=== PATIENT | female | born 1975 | race Caucasian/White ===

== ENCOUNTER 2023-08-08 17:53 | Emergency (ER) | payer OTHER, SELFPAY ==
--- NOTE | 2023-08-08 18:01 | ECG_ITS ---
The [facility] Test Date: 2023-08-08 Pat Name: JAEL JOHNSON Department: Room: - Gender: Female [employer]: : 1975 Requested By: Order Number: [id number] Reading MD: VIRGILIO BENITEZ Measurements Intervals [place] Rate: 94 P: 73 CT: 150 QRS: 82 QRSD: 80 T: 37 QT: 352 QTc: 404 Interpretive Statements 1100 Sinus rhythm 9110 normal ECG No previous ECG available for comparison Electronically Signed On 08-09-2023 7:07:10 EDT by VIRGILIO BENITEZ
[2023-08-08 18:04] VITALS: BP 148/101; PULSE 95; RESP 16; TEMP 36.9; O2SAT 99; BMI 24.7
[2023-08-08 18:15] VITALS: PULSE 88
[2023-08-08 18:19] VITALS: O2SAT 98
[2023-08-08] MEDS: ASPIRIN 81 MG TAB.CHEW 162 MG PO (18:22)
[2023-08-08] MEDS: 0.9 % SODIUM CHLORIDE 1,000 ML 1000 ML IV (18:23)
[2023-08-08 18:37] LABS: Basophils Absolute Auto 0.1 10^3/uL (0.0-0.1); Basophils Percent Auto 0.9 % (0.2-2.0); Eosinophils Absolute Auto 0.1 10^3/uL (0.0-0.7); Eosinophils Percent Auto 1.3 % (0.9-7.0); Hematocrit 38.1 % (36.0-48.0); Hemoglobin 12.8 g/dL (12.0-16.0); Immature Granulocytes Abs Auto 0.02 10^3/uL (0.00-0.03); Immature Granulocytes Pct Auto 0.2 % (0.0-0.5); Lymphocytes Absolute Auto 2.5 10^3/uL (1.2-3.8); Lymphocytes Percent Auto 22.9 % (20.5-60.0); Mean Corpuscular HGB Conc 33.6 g/dL (29.9-35.2); Mean Corpuscular Hemoglobin 30.5 pg (26.7-34.0); Mean Corpuscular Volume 90.7 fL (81.0-99.0); Mean Platelet Volume 9.4 fL (9.5-13.5); Monocytes Absolute Auto 0.9 10^3/uL (0.3-0.8); Monocytes Percent Auto 7.8 % (1.7-12.0); Neutrophils Absolute Auto 7.3 10^3/uL (1.4-6.5); Neutrophils Percent Auto 66.9 % (43.0-75.0); Platelet Count 357 10^3/uL (150-450); Red Cell Distribution Width 12.4 % (11.0-15.0)
--- NOTE | 2023-08-08 18:46 | ED_ITS ---
HPI - Chest Pain General Chief Complaint: Chest Pain Stated Complaint: chest pain Time Seen by Provider: 08/08/23 17:56 Source: patient Mode of arrival: walk-in Limitations: no limitations History of Present Illness HPI narrative: patient is a 47-year-old female who presents to the emergency department for evaluation of chest pain in the anterior chest that began around 4:30 PM and has now resolved. Patient states she was at work. She states that she gets anxious from time to time. She states because she was dizzy and had chest pain, her employer encouraged her to come to the Emergency Room. She still reports feeling mildly dizzy. She denies any recent illness, fevers, chills, cough, congestion. She states she was short of breath with the episode of chest pain but no longer has this. She has not had any peripheral edema. She does not smoke. She denies any history of high cholesterol, hypertension or diabetes. No known coronary artery disease or other heart or lung problems. Risk Factors Coronary artery disease risk factors: none Related Data Home Medications Medication Instructions Recorded Confirmed No Known Home Medications 08/08/23 08/08/23 Allergies Allergy/AdvReac Type Severity Reaction Status Date / Time No Known Drug Allergies Allergy Verified 08/08/23 18:10 Review of Systems ROS Constitutional Denies: fever or chills Cardiovascular Reports: chest pain Respiratory Reports: shortness of breath; Denies: cough Gastrointestinal Denies: nausea or vomiting Musculoskeletal Denies: back pain Integumentary/Breast Denies: rash Neurological Reports: dizziness; Denies: headache Psychiatric Reports: anxiety [facility] Social History Smoking status: Never smoker Exam Narrative Exam Narrative: Gen.: Awake, alert, in no distress Head: Normocephalic, atraumatic ENT: Moist mucous membranes Respiratory: No respiratory distress, lungs clear bilaterally Cardio: Regular rate and rhythm Gastrointestinal: Abdomen is soft, nondistended and nontender to palpation Extremities: Moves extremities equally, no pedal edema Psych: Normal mood and affect Neuro: No focal neuro deficit Skin: Warm, dry, intact Constitutional Vital Signs, click to edit/add: Last Vital Signs Temp 98.4 F 08/08/23 18:04 Pulse 95 H 08/08/23 18:04 Resp 16 08/08/23 18:04 BP 148/101 H 08/08/23 18:04 Pulse Ox 98 08/08/23 18:19 O2 Del Method Room Air 08/08/23 18:19 Course Vital Signs Vital signs: Vital Signs Temperature 98.4 F 08/08/23 18:04 Pulse Rate 95 H 08/08/23 18:04 Respiratory Rate 16 08/08/23 18:04 Blood Pressure 148/101 H 08/08/23 18:04 Pulse Oximetry 99 08/08/23 18:04 Oxygen Delivery Method Room Air 08/08/23 18:04 Temperature 98.4 F 08/08/23 18:04 Pulse Rate 95 H 08/08/23 18:04 Respiratory Rate 16 08/08/23 18:04 Blood Pressure 148/101 H 08/08/23 18:04 Pulse Oximetry 98 08/08/23 18:19 Oxygen Delivery Method Room Air 08/08/23 18:19 MDM - Chest Pain MDM Narrative Medical decision making narrative: lab studies are unremarkable, patient was found to have minimally low glucose and potassium. She ate and drank in the Emergency Room with no difficulty, treated with potassium chloride orally. Two sets of troponins within normal limits, negative d-dimer and unremarkable chest x-ray. Patient with a heart score of two. She is discharged home to follow-up with primary care, return to the Emergency Room if symptoms change or worsen Medical Records Data Attestation: I reviewed the patient's medical records. Lab Data Attestation: I reviewed the patient's lab results. Labs: Lab Results 08/08/23 08/08/23 Range/Units 18:14 19:40 WBC 11.0 (4.0-11.0) 10^3/uL RBC 4.20 (4.20-5.40) 10^6/uL Hgb 12.8 (12.0-16.0) g/dL Hct 38.1 (36.0-48.0) % MCV 90.7 (81.0-99.0) fL MCH 30.5 (26.7-34.0) pg MCHC 33.6 (29.9-35.2) g/dL RDW 12.4 (11.0-15.0) % Plt Count 357 (150-450) 10^3/uL MPV 9.4 L (9.5-13.5) fL Neut % (Auto) 66.9 (43.0-75.0) % Lymph % (Auto) 22.9 (20.5-60.0) % [place] % (Auto) 7.8 (1.7-12.0) % Eos % (Auto) 1.3 (0.9-7.0) % Baso % (Auto) 0.9 (0.2-2.0) % Neut # (Auto) 7.3 H (1.4-6.5) 10^3/uL Lymph # (Auto) 2.5 (1.2-3.8) 10^3/uL [place] # (Auto) 0.9 H (0.3-0.8) 10^3/uL Eos # (Auto) 0.1 (0.0-0.7) 10^3/uL Baso # (Auto) 0.1 (0.0-0.1) 10^3/uL Abs Immat Gran (auto) 0.02 (0.00-0.03) 10^3/uL Imm/Tot Granulo (auto) 0.2 (0.0-0.5) % PT 10.3 (9.0-11.6) sec INR 0.97 APTT 25.3 (22.3-36.2) sec D-Dimer 0.25 (<=0.59) mg/L FEU Sodium 137 (136-145) mmol/L Potassium 3.3 L (3.5-5.1) mmol/L Chloride 102 (98-107) mmol/L Carbon Dioxide 24.2 (21.0-32.0) mmol/L Anion Gap 14.1 BUN 15.0 (7.0-18.0) mg/dL Creatinine 0.94 (0.55-1.02) mg/dL Est GFR ( Amer) >60 (>=60) Est GFR (Non-Af Amer) >60 (>=60) BUN/Creatinine Ratio 16.0 Glucose 70 L (74-106) mg/dL Calcium 9.2 (8.5-10.1) mg/dL Total Bilirubin 0.2 (0.2-1.0) mg/dL AST 17 (15-37) U/L ALT 35 (14-59) U/L Alkaline Phosphatase 104 (46-116) U/L Troponin I High Sens <4.0 L <4.0 L (4.0-51.3) pg/mL Total Protein 7.5 (6.4-8.2) g/dL Albumin 4.2 (3.4-5.0) g/dL Globulin 3.3 g/dL Albumin/Globulin Ratio 1.3 Imaging Data Chest x-ray: Attestation: I have reviewed the pertinent imaging results. Radiologist's impression: Procedure: XR chest 1V EXAMINATION: XR chest 1V HISTORY: Chest pain COMPARISON: None. TECHNIQUE: Portable chest FINDINGS: The lung parenchyma is free of consolidation or infiltrate. No pneumothorax or pleural effusion. The cardiac, mediastinal and hilar contours are normal. The visualized osseous structures exhibit no gross abnormality. IMPRESSION: No acute cardiopulmonary abnormality. Electronically authenticated by: TUNDE SANCHEZ Date: 08/08/2023 19:34 ECG Data Attestation: I personally reviewed and interpreted this ECG as follows: (normal sinus rhythm at a rate of ninety-four, no acute ST elevation or ectopy. EKG reviewed by attending physician) ECG interpretation date: 08/08/23 ECG interpretation time: 18:48 Heart Score History: Moderatly Suspicious ECG: Normal Age: >45-<65 years Risk Factors: No Risk Factors Troponin: <Normal Limit Total Heart Score Recommendations & Risks:: 2 Discharge Plan Discharge Chief Complaint: Chest Pain Clinical Impression: Chest pain Patient Disposition: Home, Self-Care Time of Disposition Decision: 20:12 Condition: Good Prescriptions / Home Meds: No Action No Known Home Medications Instructions: Chest Pain (ED) Stand Alone Forms: Portal Instructions Referrals: Physician,Non-Staff, MD [Primary Care Provider] - 1 week
[2023-08-08 18:54] LABS: D Dimer 0.25 mg/L FEU (<=0.59); INR 0.97; Partial Thromboplastin Time 25.3 sec (22.3-36.2); Prothrombin Time 10.3 sec (9.0-11.6)
[2023-08-08 18:56] LABS: Alanine Aminotransferase 35 U/L (14-59); Albumin Globulin Ratio 1.3; Albumin Level 4.2 g/dL (3.4-5.0); Alkaline Phosphatase 104 U/L (46-116); Anion Gap 14.1; Aspartate Amino Transferase 17 U/L (15-37); Bilirubin Total 0.2 mg/dL (0.2-1.0); Calcium 9.2 mg/dL (8.5-10.1); Carbon Dioxide 24.2 mmol/L (21.0-32.0); Chloride 102 mmol/L (98-107); Estimated GFR (African America >60 (>=60); Estimated GFR (Non-African Ame >60 (>=60); Globulin 3.3 g/dL; Glucose 70 mg/dL (74-106); Potassium 3.3 mmol/L (3.5-5.1); Sodium 137 mmol/L (136-145); Total Protein 7.5 g/dL (6.4-8.2)
--- NOTE | 2023-08-08 18:58 | XR_ITS ---
The [address] [address] Patient Name: JAEL JOHNSON MRN: [id number] date: 1975 Sex: F Assigned Patient Location: ER Current Patient Location: ER Accession/Order Number: [id number] Exam Date: 08/08/2023 21:10 Report Date: 08/08/2023 19:34 At the request of: ALEXSANDER DELGADO Procedure: XR chest 1V EXAMINATION: XR chest 1V HISTORY: Chest pain COMPARISON: None. TECHNIQUE: Portable chest FINDINGS: The lung parenchyma is free of consolidation or infiltrate. No pneumothorax or pleural effusion. The cardiac, mediastinal and hilar contours are normal. The visualized osseous structures exhibit no gross abnormality. XR/XR chest 1V IMPRESSION: No acute cardiopulmonary abnormality. Electronically authenticated by: TUNDE SANCHEZ Date: 08/08/2023 19:34
[2023-08-08 19:00] LABS: Troponin I High Sensitivity <4.0 pg/mL (4.0-51.3)
[2023-08-08 20:03] LABS: Troponin I High Sensitivity <4.0 pg/mL (4.0-51.3)
[2023-08-08] MEDS: POTASSIUM CHLORIDE 10 MEQ ER TABLET 40 MEQ PO (20:11)
[2023-08-08 20:21] VITALS: BP 140/88; PULSE 87; RESP 20; O2SAT 99
== END 2023-08-08 20:24 | disposition home or self-care (01) ==
PROVIDERS: Physician Assistant; Emergency Provider Emergency Medicine
DX: R07.9 Chest pain, unspecified (principal)
CPT/HCPCS: 36415; 71045; 80053; 84484; 85025; 85378; 85610; 85730; 93005; 99284